=== PATIENT | male | born 1985 | race Hispanic/Latino ===

== ENCOUNTER → 2017-12-18 12:01 | Outpatient (CLI) | payer OTHER, MEDICAID, SELFPAY ==
[2017-12-18 14:41] LABS: Semen Sperm Prescence Post-Vas Present (ABSENT)
== END ==
PROVIDERS: Family Provider Physician Assistant Medical; PCP Physician Assistant Medical; Visit Provider Family Medicine
DX: Z98.52 Vasectomy status (principal)
CPT/HCPCS: 89321

== ENCOUNTER → 2018-01-29 16:21 | Outpatient (CLI) | payer OTHER, MEDICAID, SELFPAY ==
[2018-01-29 16:44] LABS: Semen Sperm Prescence Post-Vas Present (ABSENT)
== END ==
PROVIDERS: PCP Family Medicine; Visit Provider Family Medicine
DX: Z98.52 Vasectomy status (principal)
CPT/HCPCS: 89321

== ENCOUNTER → 2018-04-09 08:46 | Outpatient (CLI) | payer OTHER, MEDICAID, SELFPAY ==
[2018-04-09 09:10] LABS: Semen Sperm Prescence Post-Vas Absent (ABSENT)
== END ==
PROVIDERS: PCP Family Medicine; Visit Provider Family Medicine
DX: Z09 Encounter for follow-up examination after completed treatment for conditions other than malignant neoplasm (principal); Z98.52 Vasectomy status
CPT/HCPCS: 89321

== ENCOUNTER → 2021-03-27 15:57 | Outpatient (CLI) | payer OTHER, MEDICAID, SELFPAY ==
--- NOTE | 2021-03-27 | DI.MRI.S_ITS ---
PROCEDURE: MR LUMBAR SPINE WO CON INDICATIONS: LOW BACK PAIN TECHNIQUE: Noncontrast sagittal T1 spin echo and T2 fast echo, sagittal STIR, axial T1 and T2 fast spin echo through the lumbar spine. In cases with scoliosis, additional coronal T2 fast spin echo may be performed. COMPARISON: CR, L-SPINE 2-3 VIEWS, 10/23/2016, 14:26. CR, SPINE LUMB 2 OR 3VW, 10/25/2015, 16:02. FINDINGS: Image quality: Excellent. Alignment and Curvature: There is normal bony alignment. Bones: Postsurgical changes compatible prior L5-S1 left laminotomy. Marrow is of normal overall signal. No acute vertebral body compression fractures. Spinal Cord: Conus medullaris terminates at the L1 level. Visualized cord demonstrates normal signal and size. Paraspinous Soft Tissues: No paravertebral masses. T12-L1: Normal appearance. L1-L2: Normal appearance. L2-L3: Normal appearance. L3-L4: Normal appearance. L4-L5: Loss of disc signal. Mild to moderate diffuse disc bulge. Mild narrowing of the central canal. Mild bilateral neural foraminal narrowing. No neural compression. Fissure noted in the posterior annulus. L5-S1: Loss of disc signal. Mild, diffuse disc bulge. Small left central disc protrusion. Left central disc protrusion abuts and slightly displaces the traversing left S1 nerve root. Mild central canal narrowing. No neural foraminal narrowing. Fissure noted in the posterior annulus. IMPRESSION: 1. Small left central L5-S1 disc protrusion which abuts and slightly displaces the traversing left S1 nerve root. Please correlate with clinical data. 2. Mild L4-L5 and L5-S1 degenerative disc disease. 3. Mild L4-L5 and L5-S1 central canal narrowing. 4. Mild bilateral L4-L5 neural foraminal narrowing. 5. L4-L5 and L5-S1 disc annulus fissures. 6. Postsurgical changes. Dictated by: Latanya Hernandez MD, PhD on 03/27/2021 at 16:42 Approved by: Latanya Hernandez MD, PhD on 03/27/2021 at 16:47
== END ==
PROVIDERS: Family Provider Physician Assistant Medical; PCP Internal Medicine; Referring Provider Orthopaedic Surgery Orthopaedic Surgery of the Spine; Visit Provider Orthopaedic Surgery Orthopaedic Surgery of the Spine
DX: M51.36 Other intervertebral disc degeneration, lumbar region (principal); M51.37 Other intervertebral disc degeneration, lumbosacral region; M51.27 Other intervertebral disc displacement, lumbosacral region; M48.061 Spinal stenosis, lumbar region without neurogenic claudication; M48.07 Spinal stenosis, lumbosacral region
CPT/HCPCS: 72148

== ENCOUNTER → 2021-06-05 11:41 | Outpatient (CLI) | payer OTHER, MEDICAID, SELFPAY ==
--- NOTE | 2021-06-05 | DI.MRI.S_ITS ---
PROCEDURE: MR FEMUR LT WO CON INDICATIONS: Muscle weakness left thigh TECHNIQUE: Noncontrast coronal and sagittal T1 spin echo and STIR; axial T1 spin echo and T2 fast spin echo with fat saturation through the left femur. COMPARISON: None. FINDINGS: Image quality: Excellent. Bones: The visualized bone marrow demonstrates normal signal on all sequences. The overlying cortex appears intact. No fractures lines or intra-osseous lesions. Soft tissues: The scanned muscles demonstrate normal overall bulk and internal signal. Subcutaneous tissues appear normal as well. No soft tissue masses are present. IMPRESSION: No significant abnormality. Dictated by: Javi Lyn M.D. on 06/05/2021 at 15:22 Approved by: Javi Lyn M.D. on 06/05/2021 at 15:27
== END ==
PROVIDERS: Family Provider Physician Assistant Medical; PCP Internal Medicine; Referring Provider Psychiatry & Neurology Neurology; Visit Provider Psychiatry & Neurology Neurology
DX: M62.81 Muscle weakness (generalized) (principal)
CPT/HCPCS: 73718

== ENCOUNTER → 2023-08-15 11:49 | Outpatient (CLI) | payer OTHER, SELFPAY ==
--- NOTE | 2023-08-15 11:50 | DI.MRI.S_ITS ---
PROCEDURE: MR LUMBAR SPINE WO CON INDICATIONS: EVAL NEURO STRUCTURES AND COMPARE TO 2020 MRI TECHNIQUE: Noncontrast sagittal T1 spin echo and T2 fast echo, sagittal STIR, and T2 fast spin echo through the lumbar spine. In cases with scoliosis, additional coronal T2 fast spin echo may be performed. COMPARISON: [facility], MR, MR LUMBAR SPINE WO CON, 03/27/2021, 16:09. FINDINGS: Image quality: Excellent. Alignment and Curvature: Straightening of the normal lumbar lordosis. Bone Marrow: L5-S1 left laminotomy. Marrow is of normal overall signal. No acute vertebral body compression fractures. Spinal Cord: Conus medullaris terminates at the L1 level. Visualized cord demonstrates normal signal and size. Paraspinous Soft Tissues: No paravertebral masses. T12-L1: Normal appearance. L1-L2: Normal appearance. L2-L3: Normal appearance. L3-L4: Normal appearance. L4-L5: Disc desiccation and mild height loss. Diffuse disc bulge. Posterior annular fissure is noted. Mild central canal and mild bilateral neural foraminal stenosis is stable compared to prior. L5-S1: Disc desiccation and mild height loss. Diffuse disc bulge. Small left paracentral disc protrusion with annular fissure. Mild central canal stenosis. No neural foraminal stenosis. IMPRESSION: 1. Stable appearance of mild degenerative changes of the lower lumbar spine. 2. Stable mild central canal stenosis at L4-5 and L5-S1. 3. Stable mild bilateral neural foraminal stenosis at L4-5. Dictated by: Ross Davison M.D. on 08/15/2023 at 14:59 Approved by: Ross Davison M.D. on 08/15/2023 at 15:03
== END ==
PROVIDERS: Family Provider Physician Assistant Medical; PCP Internal Medicine; Referring Provider Orthopaedic Surgery Orthopaedic Surgery of the Spine; Visit Provider Orthopaedic Surgery Orthopaedic Surgery of the Spine
DX: M51.16 Intervertebral disc disorders with radiculopathy, lumbar region (principal); M48.061 Spinal stenosis, lumbar region without neurogenic claudication; M48.07 Spinal stenosis, lumbosacral region
CPT/HCPCS: 72148

== ENCOUNTER 2024-03-02 06:23 | Day surgery (SDC) | payer OTHER, SELFPAY ==
[2024-02-25 07:51] VITALS: BMI 25.8
--- NOTE | 2024-03-02 | PATH_ITS ---
[facility] Accession Number: [id number] No. of containers..01 Tissue . 01 Material submitted: . penis - FORESKIN . 01 Diagnosis: FORESKIN, BIOPSY: Foreskin with mild inflammation and congestion. [facility] 03/05/2024 1423 Local . 01 Electronically signed: . Charu Marie MD, Dermatopathologist NPI- [id number] . 01 Gross description: . Received in formalin with two patient identifiers and foreskin, is a sweet to brown wrinkled fragment of skin measuring 5.4 x 3.2 x 1.2 cm. Skin seems unremarkable. Inked blue, sectioned to reveal a sweet to pink smooth cut surface. Mid Level Developer sections submitted in cassette A1. ([id number]) /ADRIAN 03/03/2024 0940 Local . 01 Pathologist provided ICD-10: N47.1 . 01 CPT . 433237 Specimen Comment: A courtesy copy of this report has been sent to [phone] Performed at: [address] [id number] MD Ambrose Orourke MD Phone: [phone]
[2024-03-02 06:44] VITALS: BP 122/77; PULSE 65; RESP 16; TEMP 36.2; O2SAT 98; BMI 26.0
[2024-03-02] MEDS: LACTATED RINGERS 1,000 ML 42 ML IV (06:50)
[2024-03-02] MEDS: ACETAMINOPHEN 325 MG TABLET 975 MG PO (06:52)
--- NOTE | 2024-03-02 07:43 | PM.PREOP ---
Pre-operative Note COVID-19 COVID-19 status: Not tested Interval Note History & Physical reviewed/Exam performed by Physician: Yes Changes to H&P: No
[2024-03-02] MEDS: CEFAZOLIN 2 GM/100 ML PREMIX 100 ML IV (07:54)
--- NOTE | 2024-03-02 08:03 | SUR.OPER ---
Supine on padded OR bed, head on pillow, arms secured on padded arm boards at <90 degrees abduction, legs uncrossed, safety belt at thigh, tape over blanket over lower legs.
[2024-03-02] MEDS: BUPIVACAINE 0.25% (PF) VIAL 30 ML INJ (08:07)
[2024-03-02 09:05] VITALS: BP 110/65; PULSE 65; RESP 12; TEMP 36.4; O2SAT 95
[2024-03-02 09:10] VITALS: BP 111/71; PULSE 65; RESP 12; TEMP 36.4; O2SAT 95
--- NOTE | 2024-03-02 09:16 | PM.OP.1 ---
Procedure & Clinicians Procedure: Circumcision Same procedure as scheduled: Yes Indications: This 38-year-old man came in with complaints of history of balanitis, phimosis, short frenulum which would crack and bleed with intercourse. He comes for circumcision to resolve these problems. Surgeon: Parviz Moyer Click Yes if Unassisted: Yes Anesthesia Type: General Operative Notes Findings: Findings: [id number] phimosis, no evidence of balanitis, foreshortened frenulum. , normal penis, normal meatus, otherwise normal anatomy. Closure Type: primary Specimen(s): other (Foreskin) Prosthetic devices, grafts, tissues, transplants, or devices: None Estimated Blood Loss (mL): 20 Blood products transfused: none Procedure in detail: Procedure in detail: After informed consent was obtained, the patient was identified brought in the operating room where he is placed in a supine position on the table. Once there anesthesia was induced and maintained. The patient was then prepped, draped in prepared for circumcision. After prepping, draping, time-out, administration of antibiotics and ensuring an adequate level of anesthesia the foreskin was retracted the line of incision marked circumferentially in the coronal sulcus. This was then circumferentially incised. The foreskin was once again reduced and the line of skin incision on the penile shaft skin was marked check that there was adequate skin remaining and this was also incised. Crossing blood vessels were controlled with the electrocautery. Then returning to the coronal sulcus the intervening sleeve of tissue was removed with blunt sharp and electrocautery dissection. With this removed points of bleeding were controlled with the electrocautery. With hemostasis achieved attention was then turned to closure. The friend in her skin was reapproximated with interrupted 3-0 chromic. The shaft skin was reapproximated to the subcoronal skin with interrupted 2-0 chromic gut suture. The wound was then infiltrated with 0.25% plain Marcaine. Bacitracin Xeroform gauze and dressings were applied. The patient was awakened having tolerated the procedure well there were no complications. The patient was transferred to the postanesthesia care unit. Complications: none Post-operative Condition: stable Disposition: PACU Plan for aftercare: Once the patient is fully awake and alert he will be discharged to home to follow up in my office in approximately 10-14 days.
[2024-03-02 09:17] VITALS: BP 122/81; PULSE 80; RESP 12; TEMP 36.4; O2SAT 97
[2024-03-02 09:23] VITALS: BP 118/80; PULSE 78; RESP 18; TEMP 36.4; O2SAT 99
== END 2024-03-02 09:58 | disposition home or self-care (01) ==
PROVIDERS: Family Provider Physician Assistant Medical; PCP Internal Medicine; Referring Provider Urology; Visit Provider Urology
PROC: (CPT 54161; principal; 2024-03-02 07:45)
DX: N47.1 Phimosis (principal); Z87.438 Personal history of other diseases of male genital organs
CPT/HCPCS: 54161; J0690; J1100; J1885; J2405; J2704; J3010